=== PATIENT | male | born 1960 | race Caucasian/White ===

== ENCOUNTER 2016-05-11 06:15 | Day surgery (SDC) | payer BC ==
[2016-05-10 16:02] VITALS: BMI 29.5
[~2016-05-11 06:15] MED LIST: LIDOCAINE 1%/EPI 1:100000 (50 ML MULTI DOSE VIAL) INF ONE
[2016-05-11 06:35] VITALS: TEMP 98
[2016-05-11] MEDS: CIPROFLOXACIN 0.3% EYE DROPS 5 ML BOTTLE ONE ×3 (06:50→07:06)
[2016-05-11] MEDS ORDERED: LIDOCAINE 1%/EPI 1:100000 (50 ML MULTI DOSE VIAL) ONE (07:08)
[2016-05-11] MEDS ORDERED: VANCOMYCIN 500 MG VIAL (RESTRICTED TO ID ONLY) ONE (07:24)
[2016-05-11] MEDS ORDERED: POVIDONE-IODINE 5% OPHTHALMIC PREP 30 ML SOLUTION ONE (07:38)
[2016-05-11] MEDS ORDERED: LIDOCAINE HCL 2% JELLY (5 ML/TUBE) ONE (07:47)
[2016-05-11] MEDS ORDERED: ACETAMINOPHEN 325 MG TABLET (FP) PO PRN (07:49)
[2016-05-11] MEDS ORDERED: MIDAZOLAM HCL 2 MG/2 ML SINGLE DOSE VIAL ONE (07:50)
[2016-05-11] MEDS ORDERED: CIPROFLOXACIN HCL 0.3% OPHTH 2.5ML BOTTLE OP SCH (08:00)
[2016-05-11] MEDS ORDERED: LIDOCAINE 1%/EPI 1:100000 (50 ML MULTI DOSE VIAL) INF ONE (08:04)
--- NOTE | 2016-05-11 08:33 | OP ---
DATE OF OPERATION: DATE OF DICTATION: 05/11/2016 PREOPERATIVE DIAGNOSIS: Conjunctival lesion, right eye. POSTOPERATIVE DIAGNOSIS: Conjunctival lesion, right eye. PROCEDURE: Excision of conjunctival lesion. ANESTHESIA: Topical MAC. PROCEDURE: Patient was brought into the operating room and correctly identified along with the operative site. He was then prepped and draped in the usual sterile fashion including 5% Betadine solution in the conjunctival sac and an eyelid drape. An eyelid speculum was then placed into the right eye. The eye was inspected and a small nodule was noted at approximately 10 o'clock on the patient's eye. This was further inspected and the nodule was noted to be beneath the conjunctiva and within the episcleral/tenon's layer. The borders were marked with a marking pen and the lesion was then inflated with subconjunctival lidocaine 1% with epinephrine. The lesion was then excised using Iraida scissors at the borders and the dissection was taken down to bare sclera. The lesion was then sent for histopathologic evaluation. There was good hemostasis and the conjunctival defect was closed with a single 6-0 plain gut suture. The eye patched with topical vancomycin, and patient discharged from the operating room in a stable condition. NATACHA ROBERTSON M.D. [id number] MTDD
[2016-05-11 09:42] VITALS: BP 131/82; PULSE 55
--- NOTE | 2016-05-12 11:24 | PATH ---
Surgical Pathology Report Patient Name: AGUSTÍN LACKEY Med. Rec. #: [id number] /Age/Gender: 1960 (Age: 55) / M Account: [id number] Location: [facility] SURGICAL Taken: 05/11/2016 Received: 05/11/2016 Reported: 05/12/2016 Physicians: Matthieu Henson M.D. Specimen(s) Received CONJUNCTIVAL GRANULOMA RIGHT EYE Clinical History Conjunctival granuloma right eye Final Diagnosis CONJUNCTIVA, RIGHT EYE, BIOPSY: BENIGN CONJUNCTIVAL TISSUE WITH VASCULAR ECTASIA AND AREAS OF HEMORRHAGE. NO NEOPLASM OR SIGNIFICANT INFLAMMATORY INFILTRATES IDENTIFIED. Comment: Recommend correlation with clinical findings and follow up as clinically indicated. Electronically Signed Austin Bui M.D. Gross Description Received fresh on a dry swab labeled "conjunctival granuloma right eye" is a 0.2 cm in greatest dimension piece of red tissue. Totally submitted in one cassette. [facility]/05/11/2016 [facility]/05/11/2016
== END 2016-05-11 09:41 | disposition home or self-care (01) ==
LOC: JASU-SURG 06:15
PROVIDERS: ATTEND Ophthalmology
PROC: 08BSXZX Excision of Right Conjunctiva, External Approach, Diagnostic (ICD-10-PCS; principal; 2016-05-11 08:00)
DX: H11.221 Conjunctival granuloma, right eye (principal)
CPT/HCPCS: 88304-TC